=== PATIENT | male | born 1935 | race Caucasian/White ===

== ENCOUNTER → 2017-12-14 | Outpatient (CLI) | payer OTHER, BC ==
[~2017-12-14] MED LIST: ACETAMINOPHEN325 M1 PO; ADULT LOW DOSE81 MG PO; ASPIRIN EC81 M1 PO; DIPHEN/ATROPINE PO; LEVAQUIN 500 M500 M2 PO; LISINOPRIL20 MG PO; NORCO 5-325 TA1 EACH; SIMVASTATIN40 MG PO; ZOCOR 20 MG TAB20 M1 PO
[2017-12-14 16:55] LABS: BE(vivo) -1.3 mmol/L (-2 to +3); HCO3 22.8 mmol/L (22.0-26.0); PCO2 37.2 mmHg (35.0-45.0); PO2 56.4 mmHg (80.0-100.0); pH 7.406 (7.360-7.450); sO2 89.7 % (92.0-98.0)
== END | disposition home or self-care (01) ==
LOC: PUL 16:42
PROVIDERS: Internal Medicine Pulmonary Disease
DX: R79.81 Abnormal blood-gas level (principal); Z79.899 Other long term (current) drug therapy; Z79.82 Long term (current) use of aspirin

== ENCOUNTER → 2017-12-15 | Outpatient (CLI) | payer OTHER, BC ==
[2017-12-15 13:46] LABS: CREATININE 1.1 mg/dL (0.7-1.3)
== END ==
LOC: LABMALL 13:07 → PUL 13:07 → CAT 13:07
PROVIDERS: Internal Medicine Pulmonary Disease
DX: K80.20 Calculus of gallbladder without cholecystitis without obstruction (principal); R06.00 Dyspnea, unspecified

== ENCOUNTER → 2018-02-08 | Outpatient (CLI) | payer OTHER, BC ==
[2018-02-08 16:06] LABS: BE(vivo) 1.1 mmol/L (-2 to +3); HCO3 25.2 mmol/L (22.0-26.0); PCO2 38.9 mmHg (35.0-45.0); sO2 89.9 % (92.0-98.0)
[2018-02-08 16:07] LABS: PO2 55.7 mmHg (80.0-100.0)
== END ==
LOC: PUL 15:40
PROVIDERS: Internal Medicine Pulmonary Disease
DX: R06.02 Shortness of breath (principal)

== ENCOUNTER → 2020-01-17 | Outpatient (CLI) | payer OTHER, BC | LOC: SJCVC 14:28 | DX: I49.1 Atrial premature depolarization (principal); I49.3 Ventricular premature depolarization; I44.4 Left anterior fascicular block; R94.31 Abnormal electrocardiogram [ECG] [EKG]; I51.7 Cardiomegaly; J84.10 Pulmonary fibrosis, unspecified; I77.810 Thoracic aortic ectasia; E78.5 Hyperlipidemia, unspecified; Z93.3 Colostomy status; Z79.899 Other long term (current) drug therapy; Z87.891 Personal history of nicotine dependence; Z86.69 Personal history of other diseases of the nervous system and sense organs ==

== ENCOUNTER → 2020-09-25 | Outpatient (CLI) | payer OTHER, BC | LOC: SJCVC 10:17 | PROVIDERS: ATTEND Internal Medicine | DX: I44.4 Left anterior fascicular block (principal); I45.10 Unspecified right bundle-branch block; I45.2 Bifascicular block; R94.31 Abnormal electrocardiogram [ECG] [EKG]; R00.1 Bradycardia, unspecified; E78.5 Hyperlipidemia, unspecified; I77.810 Thoracic aortic ectasia; J84.10 Pulmonary fibrosis, unspecified; Z86.69 Personal history of other diseases of the nervous system and sense organs ==

== ENCOUNTER → 2021-04-14 | Outpatient (CLI) | payer OTHER, BC | LOC: SJCVCIMAG 10:11 | PROVIDERS: ATTEND Internal Medicine | DX: R94.31 Abnormal electrocardiogram [ECG] [EKG] (principal); I08.8 Other rheumatic multiple valve diseases; I45.2 Bifascicular block; R00.1 Bradycardia, unspecified; E78.5 Hyperlipidemia, unspecified; J84.10 Pulmonary fibrosis, unspecified; Z86.69 Personal history of other diseases of the nervous system and sense organs; Z87.891 Personal history of nicotine dependence; Z72.89 Other problems related to lifestyle; Z79.899 Other long term (current) drug therapy; Z79.82 Long term (current) use of aspirin ==

== ENCOUNTER → 2021-08-19 | Outpatient (CLI) | payer OTHER, BC ==
[~2021-08-19] VITALS: Ht 167.6 cm; Wt 95.3 kg
[~2021-08-19] MED LIST changes: +IRBESARTAN150 MG PO; +LIPITOR 20 MG T20 M1 PO; +NORVASC 2.5 MG2.5 M1 PO; +OXYBUTYNIN CHLO10 MG PO; +SYNTHROID50 MCG PO
--- NOTE | ~2021-08-19 | P ---
[facility] [place] [address] PROCEDURE REPORT Name: ERMIAS WILSON Room #: REG [facility] Franky#: [id number] Admission: 08/19/21 Attend Phys: Aki Romero Discharge: Date of : 31 Report #: [id number] THIS REPORT FOR: cc: Dneiz St MD, Neal A. MD McElhinney, Christian C. MD ~ cc: Deniz St MD DATE OF SERVICE: 08/19/2021 PROCEDURE PERFORMED: Upper endoscopy with esophageal dilation. HISTORY OF PRESENT ILLNESS: The patient is an 85-year-old male with a history of recurrent dysphagia. Last upper endoscopy 5 years ago with dilation was helpful. He has a known esophageal diverticulum. Plan is for repeat upper endoscopy with dilation. DESCRIPTION OF PROCEDURE: The risks and benefits of the procedure were explained to the patient, those risks including but not limited to bleeding, perforation and the risk of sedation. He understood these risks and gave informed consent. Sedation was given using propofol per anesthesia. Next, using a standard Olympus upper endoscope, the scope was placed in the patient's mouth and advanced under direct vision through the esophagus, stomach, and into the second portion of the duodenum. The larynx was normal in appearance. The upper esophagus was normal. In the mid distal esophagus, once again a diverticulum was noted. In the distal esophagus, the GE junction was normal. Overall, the gastric mucosa was normal. The pylorus was normal and patent. There was a mild duodenitis in the duodenal bulb. The first and second portion of the duodenum were normal. The scope was then brought back up into the patient's stomach and biopsies were obtained to rule out H. pylori. The Savary guidewire was then inserted through the scope, leaving the guidewire in place as the scope was then withdrawn. Next, a 51-Ch[place] Savary dilation of the esophagus was performed without difficulty. The wire and dilator removed. The scope was reintroduced into the patient's stomach. There was a small mucosal tear noted near the diverticulum. No evidence of bleeding. The scope was then withdrawn and the procedure terminated. The patient tolerated the procedure well. IMPRESSION: 1. Esophageal diverticulum. 2. Mild duodenitis. 3. Otherwise, normal upper endoscopy. RECOMMENDATIONS: 1. Await biopsy results. 2. Observe the patient post-dilation. [address] [address] PROCEDURE REPORT Name: ERMIAS WILSON Room #: REG CLMark Anthony Wilkins#: [id number] Admission: 08/19/21 Attend Phys: Aki Romero Discharge: Date of : 31 Report #: [id number] Thank you for allowing me to participate in his care. By: [id number] Aki Meeks MD /nt
--- NOTE | 2021-08-24 08:06 | PATH ---
[facility] [address] [place] [address] PATHOLOGY RPT PROCEDURE Name: ERMIAS WILSON Room #: REG [facility] MJackelynR.#: [id number] Admission: 08/19/21 Date of : 31 Discharge: Report #: [id number] Path Case #: [id number] [facility] Accession Number: [id number] . 01 Material submitted: . gastrointestinal site - GASTRIC BIOPSY- R/O H. PYLORI . 01 Clinical history: . ESOPHAGEAL STRICTURE, DYSPHAGIA DUODENITIS . 02 Diagnosis: Gastric mucosa, gastric, biopsy: - Mild inactive chronic gastritis. - H. pylori immunohistochemical stain is negative. (SCA:yanci; 08/21/2021) MBR 08/21/2021 [facility] Local . 02 Electronically signed: . Clovis Badillo DO, Pathologist NPI- [id number] . 01 Gross description: . The specimen is submitted in formalin, labeled "Ermias Wilson, gastric biopsy". Received are 3 segments of pale veloz tissue ranging in size from 0.3 to 0.5 cm in maximum dimensions. The specimen is submitted entirely in cassette A1. ([facility]; 08/20/2021) NRI/NRI 08/20/2021 1758 Local . 02 Pathologist provided ICD-10: K29.50 . 02 CPT . 542574 Specimen Comment: A courtesy copy of this report has been sent to [phone], [phone] Specimen Comment: [id number] Specimen Comment: Report sent to / DR GARCIA Performed at: 01 [facility] [address] [place] [address] [id number] MD Jb Dumont MD Phone: [phone] Performed at: 02 [place] [id number] [address] [id number] MD Anoop Shoemaker MD Phone: [phone]
== END | disposition home or self-care (01) ==
LOC: GI 08:34
PROVIDERS: ATTEND Specialist
DX: R13.10 Dysphagia, unspecified (principal); K29.50 Unspecified chronic gastritis without bleeding; K22.5 Diverticulum of esophagus, acquired; K29.80 Duodenitis without bleeding; I10 Essential (primary) hypertension; E78.00 Pure hypercholesterolemia, unspecified; Z85.038 Personal history of other malignant neoplasm of large intestine; Z98.890 Other specified postprocedural states; Z20.822 Contact with and (suspected) exposure to COVID-19; Z79.899 Other long term (current) drug therapy; Z87.891 Personal history of nicotine dependence; Z93.3 Colostomy status
CPT/HCPCS: 62110; 62900